=== PATIENT | female | born 1980 | race Caucasian/White ===

== ENCOUNTER 2018-06-26 23:16 | Emergency (ER) | payer OTHER ==
[2018-06-26] MEDS ORDERED: Ibuprofen TAB* 800 MG PO ONE (23:39)
[2018-06-26 23:53] LABS: ABS Basophils 0 10^3/ul (0-0.2); ABS Eosinophils 0 10^3/ul (0-0.6); ABS Lymphocytes 0.8 10^3/ul (1.0-4.8); ABS Monocytes 0.8 10^3/ul (0-0.8); ABS Neutrophils 5.8 10^3/ul (1.5-7.7); ABS Nucleated RBC 0 10^3/ul; Eosinophil % 0.1 %; Hematocrit 38 % (35-47); Lymphocyte % 11.3 %; Mean Corpuscular HGB Conc 34 g/dl (31-36); Mean Corpuscular Hemoglobin 27 pg (27-31); Mean Corpuscular Volume 80 fL (80-97); Nucleated Red Blood Cells % 0; Platelet Count 145 10^3/ul (150-450); Red Blood Count 4.81 10^6/ul (4.00-5.40); Red Cell Distribution Width 15 % (10.5-15); White Blood Count 7.5 10^3/ul (3.5-10.8)
[2018-06-27] MEDS ORDERED: Fluticasone NASAL SPRAY 50MCG* 16 gm SPRAY BTL BOTH NARES ONE (00:32)
--- NOTE | 2018-06-27 00:32 | ED ---
Throat Pain/Nasal Congestion - HPI Summary HPI Summary: 37-year-old female presents with sore throat for past couple days. She states she has history of sinus infections. She states she does not want antibiotics for sinus infection. She states that had sinus congestion for past week and a half. She admits to a fever. She also admits to cough. No chest pain or shortness breath. No nausea vomiting diarrhea or abdominal pain. She has no medical conditions. She has not tried anything for her symptoms. - History of Current Complaint Chief Complaint: EDThroatPain Time Seen by Provider: 06/26/18 23:34 - Allergies/Home Medications Allergies/Adverse Reactions: Allergies Allergy/AdvReac Type Severity Reaction Status Date / Time No Known Allergies Allergy Verified 06/26/18 23:19 PMH/Surg Hx/FS Hx/Imm Hx Endocrine/Hematology History: Denies: Hx Anticoagulant Therapy Respiratory History: Denies: Hx Asthma Psychiatric History: Reports: Hx Anxiety - pt denied, Hx Depression - pt denied - Immunization History Date of Tetanus Vaccine: UTD Date of Influenza Vaccine: Mar 2018 Infectious Disease History: No Infectious Disease History: Denies: Traveled Outside the [place] in Last 30 Days - Family History Known Family History: Positive: Non-Contributory - Social History Alcohol Use: None Substance Use Type: Reports: None Smoking Status (MU): Light Every Day Tobacco Smoker Type: Cigarettes Length of Time of Smoking/Using Tobacco: years Have You Smoked in the Last Year: Yes Review of Systems Positive: Fever Positive: Sore Throat, Nasal Discharge Negative: Chest Pain Positive: Cough. Negative: Shortness Of Breath All Other Systems Reviewed And Are Negative: Yes Physical Exam Triage Information Reviewed: Yes Vital Signs On Initial Exam: Initial Vitals Temp Pulse Resp BP Pulse Ox 101.5 F 110 16 129/84 97 06/26/18 23:17 06/26/18 23:17 06/26/18 23:17 06/26/18 23:17 06/26/18 23:17 Vital Signs Reviewed: Yes Appearance: Positive: Well-Appearing Skin: Positive: Warm, Dry Head/Face: Positive: Normal Head/Face Inspection Eyes: Positive: Normal, EOMI, ZARA, Conjunctiva Clear ENT: Positive: Pharyngeal erythema, TMs normal, Sinus tenderness, Uvula midline , Other - soft palate symmetric Neck: Positive: Supple, Nontender, No Lymphadenopathy Respiratory/Lung Sounds: Positive: Clear to Auscultation, Breath Sounds Present Cardiovascular: Positive: Normal, RRR Abdomen Description: Positive: Nontender, Soft Bowel Sounds: Positive: Present Musculoskeletal: Positive: Normal Neurological: Positive: Normal Psychiatric: Positive: Normal Diagnostics - Vital Signs Vital Signs Temp Pulse Resp BP Pulse Ox 06/26/18 23:17 101.5 F 110 16 129/84 97 - Laboratory Lab Results: Lab Results 06/26/18 06/26/18 06/26/18 Range/Units 23:42 23:42 23:52 WBC 7.5 (3.5-10.8) 10^3/ul RBC 4.81 (4.00-5.40) 10^6/ul Hgb 13.0 (12.0-16.0) g/dl Hct 38 (35-47) % MCV 80 (80-97) fL MCH 27 (27-31) pg MCHC 34 (31-36) g/dl RDW 15 (10.5-15) % Plt Count 145 L (150-450) 10^3/ul MPV 8.0 (7.4-10.4) fL Neut % (Auto) 77.4 % Lymph % (Auto) 11.3 % [place] % (Auto) 10.7 % Eos % (Auto) 0.1 % Baso % (Auto) 0.5 % Absolute Neuts (auto) 5.8 (1.5-7.7) 10^3/ul Absolute Lymphs (auto) 0.8 L (1.0-4.8) 10^3/ul Absolute Monos (auto) 0.8 (0-0.8) 10^3/ul Absolute Eos (auto) 0 (0-0.6) 10^3/ul Absolute Basos (auto) 0 (0-0.2) 10^3/ul Absolute Nucleated RBC 0 10^3/ul Nucleated RBC % 0 Sodium 133 L (135-145) mmol/L Potassium 3.3 L (3.5-5.0) mmol/L Chloride 103 (101-111) mmol/L Carbon Dioxide 22 (22-32) mmol/L Anion Gap 8 (2-11) mmol/L BUN 8 (6-24) mg/dL Creatinine 0.78 (0.51-0.95) mg/dL Est GFR ( Amer) 101.7 (>60) Est GFR (Non-Af Amer) 84.0 (>60) BUN/Creatinine Ratio 10.3 (8-20) Glucose 159 H (70-100) mg/dL Calcium 8.9 (8.6-10.3) mg/dL Total Bilirubin 0.40 (0.2-1.0) mg/dL AST 18 (13-39) U/L ALT 12 (7-52) U/L Alkaline Phosphatase 71 (34-104) U/L C-Reactive Protein 112.50 H (<8.01) mg/L Total Protein 7.1 (6.4-8.9) g/dL Albumin 4.0 (3.2-5.2) g/dL Globulin 3.1 (2-4) g/dL Albumin/Globulin Ratio 1.3 (1-3) Monoscreen Negative (Negative) Group A Strep Rapid Negative (Negative) Result Diagrams: 06/26/18 23:42 06/26/18 23:42 Lab Statement: Any lab studies that have been ordered have been reviewed, and results considered in the medical decision making process. EENT Course/Dx - Course Course Of Treatment: 37-year-old female presents with sore throat for past couple days. She states she has history of sinus infections. She states she does not want antibiotics for sinus infection. She states that had sinus congestion for past week and a half. She admits to a fever. She also admits to cough. No chest pain or shortness breath. No nausea vomiting diarrhea or abdominal pain. She has no medical conditions. She has not tried anything for her symptoms. On exam sinus congestion noted. Pharynx erythematous. Uvula midline. Lungs clear to auscultation. Chest x-ray read as me as normal. Labs within normal limits except CRP elevated. Monospot negative. Discuss adding an antibiotic for sinusitis and patient declined. We'll add on Flonase for sinus congestion. Patient understands agrees with plan. - Differential Diagnoses Differential Diagnoses: Pharyngitis, Sinusitis, URI/Bronchitis - Diagnoses Provider Diagnoses: Upper respiratory infection Discharge - Sign-Out/Discharge Documenting (check all that apply): Patient Departure - Discharge Plan Condition: Good Disposition: HOME Patient Education Materials: Fluticasone (Into the nose), Upper Respiratory Infection (ED) Referrals: [facility] [Outside] Additional Instructions: Use saline spray in nose as much as needed Use intranasal steroid two spray each nostril daily Take Tylenol or ibuprofen every 6 hours for fever Follow up with primary in 5 days Return to ED if develop any new or worsening symptoms - Billing Disposition and Condition Condition: GOOD Disposition: Home
[2018-06-27 01:09] VITALS: BP 110/70
== END 2018-06-27 01:09 | disposition home or self-care (01) ==
LOC: ED 23:16
DX: J06.9 Acute upper respiratory infection, unspecified (principal); F17.210 Nicotine dependence, cigarettes, uncomplicated
CPT/HCPCS: 36415; 71046; 80053; 85025; 86140; 86308; 87651; 99283; A9270-GY